=== PATIENT | male | born 1970 | race Caucasian/White ===

== ENCOUNTER 2024-06-27 11:23 | Day surgery (SDC) | payer OTHER, SELFPAY ==
[2024-06-27 11:34] VITALS: BMI 38.9
--- NOTE | 2024-06-27 11:48 | W.ICD.CONTRA ---
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
-
History of MO?: No
LV Function
Left ventricular function study result?: Ejection Fraction >/= 40%
ACEI/ARB/ARNI
Patient already on ACEI/ARB/ARNI: Yes
Beta-Janae
Patient already on Beta Janae: Yes
[2024-06-27 11:50] VITALS: BP 142/90
[2024-06-27] MEDS: NSS 500 IV (12:22)
--- NOTE | 2024-06-27 14:39 | ITS.CL.ICD ---
[employer] Associate - ICD
Implantable Cardioverter Defibrillator
Procedure Report:
ICD GENERATOR CHANGE
Date of Procedure: June 27, 2024
Primary Care Physician: Dr. Lul Alcala
Primary Director Medical Affairs: Dr. Hay Dover
Procedures:
1. Removal of single chamber ICD generator at [facility]
2. Implant of new single chamber ICD generator
INDICATION FOR PROCEDURE:
1. ICD at [facility] due to rapid battery depletion as part of a [employer] recall
2. Current CHF Class 1 and patient is on guideline directed medical therapy at maximal tolerated dose for greater 3 months
3. Diagnosis of CHF initially made over 9 months ago
4. Life expectancy is greater than one year
5. Primary prevention at initial implant
6. Primary prevention at this generator change
7. Explanted device has delivered appropriate therapy: No
Indication/History: The patient is a 53-year-old man with a past medical history significant for CABG and ICD placement who presents for ICD generator change due to battery at [employer]. His device was part of a [employer] recall and he appears to have
had rapid battery depletion in April of this year. All lead data is stable. He is not pacemaker dependent. His device has never delivered therapy since implant in 2018.
Antibiotic: 3 g Ancef
Sedation/anesthesia: Conscious sedation per anesthesia staff
Description of Procedure: 'Time out' was called and confirmed. The patient was prepped and draped in sterile fashion. Lidocaine with epinephrine was used for local anesthesia. An incision was made along the previous incision and the device and
leads were carefully dissected from the pocket. Hemostasis was obtained with electrocautery. The leads were from the device header and tested using an external analyzer. The pocket was liberally irrigated with antibiotic solution. Once
testing (see below) showed adequate and stable function, the leads were connected to the generator header and the leads and generator were placed within the pocket. The pocket was closed in the typical fashion.
EXPLANTED ICD GENERATOR: Biotronik Inventra 7 VR�T DX DF�1 ProMRI serial #[id number]
IMPLANTED ICD GENERATOR: Biotronik model 431213 Intica Harish 7 VR�T DX serial number: [id number]
Existing RV lead: Biotronik model 873928 Plexa ProMRI DF�1 S DX serial number: [id number]
DEVICE TESTING:
Sensing: RA 5.2 mV (floating atrial dipole), RV 8.2 mV
Capture: RV 0.9 V@0.4ms
Ohms: RV 462
FINAL PROGRAMMING
Boy Pacing: VDI 40ppm
Tachy parameters:
VF: 231 bpm, ATP while charging, Shock
VT: 171 bpm, Monitor
Complications: None
CONCLUSIONS:
1. Successful explant of single chamber permanent defibrillator
2. Successful implant of single chamber permanent defibrillator
RECOMMENDATIONS:
1. Routine post-op care.
2. In-Office wound check within 7 days.
3. Office interrogation within 4 weeks.
Copy to: Dr. Lul Alcala
[2024-06-27 14:56] VITALS: BP 122/82
[2024-06-27 15:00] VITALS: BP 123/82
[2024-06-27 15:15] VITALS: BP 110/83
[2024-06-27 15:30] VITALS: BP 94/75
[2024-06-27 15:46] VITALS: BP 118/78
== END 2024-06-27 16:00 | disposition home or self-care (01) ==
LOC: CATH 11:23
PROVIDERS: ATTENDING PHYSICIAN Internal Medicine Interventional Cardiology; FAMILY PHYSICIAN Family Medicine; OTHER PHYSICIAN Internal Medicine Cardiovascular Disease
DX: Z45.02 Encounter for adjustment and management of automatic implantable cardiac defibrillator (principal); I25.5 Ischemic cardiomyopathy; I11.0 Hypertensive heart disease with heart failure; I50.9 Heart failure, unspecified; I48.0 Paroxysmal atrial fibrillation; I25.10 Atherosclerotic heart disease of native coronary artery without angina pectoris; Z95.1 Presence of aortocoronary bypass graft; E78.5 Hyperlipidemia, unspecified; Z87.891 Personal history of nicotine dependence; Z79.82 Long term (current) use of aspirin
CPT/HCPCS: 33262; 93005; C1722